=== PATIENT | female | born 1940 | race Native Hawaiian/Other Pacific Islander ===

== ENCOUNTER 2018-01-15 23:31 | Emergency (ER) | payer OTHER ==
[2018-01-15 23:32] VITALS: BMI 24.1
--- NOTE | 2018-01-15 23:43 | C.PDOC ---
History Of Present Illness 77 year old female presents to the ED c/o acute urinary retention. Patient reports she had bladder biopsy done last Thursday for bladder CA. Patient states being unable to void since 16:00. Patient denies fever, chills, nausea, vomit, diarrhea, back pain. Time Seen by Provider: 01/15/18 23:43 Chief Complaint (Nursing): Female Genitourinary History Per: Patient History/Exam Limitations: no limitations Onset/Duration Of Symptoms: Hrs (16:00) Current Symptoms Are (Timing): Still Present Severity: Mild Pain Scale Rating Of: 4 Quality Of Discomfort: Pressure, Other (tightness) Associated Symptoms: Urinary Symptoms. denies: Nausea, Vomiting, Diarrhea Recent travel outside of the [place]: No Additional History Per: Patient Abnormal Vaginal Bleeding: No Past Medical History Reviewed: Historical Data, Nursing Documentation, Vital Signs Vital Signs: Last Vital Signs Temp 98.2 F 01/15/18 23:35 Pulse 126 H 01/15/18 23:35 Resp 18 01/15/18 23:35 BP 199/94 H 01/15/18 23:35 Pulse Ox 99 01/15/18 23:35 - Medical History PMH: Arthritis, Diabetes, HTN, Hypercholesterolemia, Kidney Stones (2012), Chronic Kidney Disease Surgical History: Endoscopy (2006) - [facility] Procedures CYSTOSCOPY NEC (02/28/13) INSERT INDWELLING CATH (03/06/13) RETROGRADE PYELOGRAM (03/14/13) TU DESTRUC BLADD LES NEC (06/27/13) Family History: States: Unknown Family Hx - Social History Hx Tobacco Use: No Hx Alcohol Use: No Hx Substance Use: No - Immunization History Hx Tetanus Toxoid Vaccination: No Hx Influenza Vaccination: No Hx Pneumococcal Vaccination: No Review Of Systems Constitutional: Negative for: Fever, Chills Cardiovascular: Negative for: Chest Pain Respiratory: Negative for: Shortness of Breath Gastrointestinal: Positive for: Abdominal Pain. Negative for: Nausea, Vomiting Genitourinary: Positive for: Other (retention). Negative for: Dysuria, H ematuria Musculoskeletal: Negative for: Back Pain Skin: Negative for: Rash Physical Exam - Physical Exam Appears: Non-toxic, In Acute Distress Skin: Warm, Dry Head: Normacephalic Eye(s): bilateral: Normal Inspection Neck: Supple Chest: Symmetrical Cardiovascular: Rhythm Regular Respiratory: No Rhonchi, No Stridor, No Wheezing Gastrointestinal/Abdominal: Soft, Tenderness (suprapubic pressure, tightness), No Guarding, No Rebound Extremity: Bilateral: Atraumatic, Normal Color And Temperature, Normal ROM Neurological/Psych: Oriented x3, Normal Speech, Normal Cognition Gait: Steady ED Course And Treatment O2 Sat by Pulse Oximetry: 99 (ON RA) Pulse Ox Interpretation: Normal Progress Note: Plan: - Kenny Disposition Counseled Patient/Family Regarding: Studies Performed, Diagnosis, Need For Followup - Disposition Referrals: Tammy Mueller MD [Staff Provider] - Disposition: HOME/ ROUTINE Disposition Time: 23:43 Condition: FAIR Instructions: Urinary Retention (DC), How to Care for Your Kenny Catheter, Female, Kenny Catheter, Female Forms: [employer] (Bulgarian) - Clinical Impression Clinical Impression: Acute urinary retention - Scribe Statement The provider has reviewed the documentation as recorded by the Scribe Jose Zheng All medical record entries made by the Scribe were at my direction and personally dictated by me. I have reviewed the chart and agree that the record accurately reflects my personal performance of the history, physical exam, medical decision making, and the department course for this patient. I have also personally directed, reviewed, and agree with the discharge instructions and disposition.
[2018-01-16 01:44] VITALS: BP 141/68; PULSE 82; RESP 16; TEMP 98.7; O2SAT 96
== END 2018-01-16 00:49 | disposition home or self-care (01) ==
LOC: C.ER 23:31
DX: R33.9 Retention of urine, unspecified (principal)

== ENCOUNTER 2018-04-05 05:54 | Day surgery (SDC) | payer OTHER ==
[2018-03-09 09:09] VITALS: BMI 22.6
[2018-04-05] MEDS ORDERED: Midazolam 2 MG/2 ML VIAL ONE (07:37)
[2018-04-05] MEDS ORDERED: Propofol 10 mg/ml Inj (20 ML) ONE (07:37)
[2018-04-05] MEDS ORDERED: cefTRIAXone 1 gm 1 GM/100 ML BAG IVPB ONE (07:39)
[2018-04-05] MEDS ORDERED: Lidocaine 2% Jelly (Uro-Jet) ONE (07:39)
[2018-04-05] MEDS ORDERED: Iohexol 240 (50 ml) ONE (07:39)
[2018-04-05] MEDS ORDERED: Lactated Ringer's 1,000 ML IV ONE (08:46)
--- NOTE | 2018-04-05 09:11 | PCM.SURG1 ---
Surgeon's Initial Post Op Note - Surgeon's Notes Surgeon: Santa Mueller Farm Boss: none Type of Anesthesia: General LMA Pre-Operative Diagnosis: Hx of bladder cancer Operative Findings: Bladder cancer, multifocal Post-Operative Diagnosis: same Operation Performed: cysto,. bladder bx and ful. tur-BT. EUA Specimen/Specimens Removed: urine, bladder bx's Estimated Blood Loss: EBL {In ML}: 0 Blood Products Given: N/A Post-Op Condition: Good Date of Surgery/Procedure: 04/05/18 Time of Surgery/Procedure: 08:45
[2018-04-05 09:16] VITALS: O2SAT 100
[2018-04-05 10:00] VITALS: TEMP 98.2
[2018-04-05 10:04] VITALS: PULSE 80; RESP 12
[2018-04-05 10:51] VITALS: BP 136/72
--- NOTE | 2018-04-06 06:48 | OP ---
PROCEDURE DATE: 04/05/2018 PREOPERATIVE DIAGNOSIS: History of bladder carcinoma. POSTOPERATIVE DIAGNOSIS: Recurrent bladder tumor. PROCEDURES: 1. Fulguration. 2. Transurethral resection of bladder tumor. SURGEON: Tammy Mueller MD DESCRIPTION OF PROCEDURE: As follows: The patient was placed in lithotomy position. The genitalia were prepped and draped sterilely. Anesthesia applied by the anesthesiologist. Perioperative antibiotics were administered. A 22-Frisian cystoscope sheath was introduced under direct vision. Urethra, prostate, and bladder were inspected with 30-degree and 70-degree lenses. FINDINGS: There was no stricture in the anterior urethra. There was no bladder neck contracture. There were no mucosal lesions within the urethra. There were lytic bladder tumors noted on the right and left side of the bladder neck. There were multiple papillary tumors involving the trigone of the bladder as well as the anterior wall of the bladder at the dome. There were areas of focal erythema throughout the bladder with slightly granular and slightly raised appearance. The areas of the abnormal mucosa were biopsied using cold cup biopsy forceps. Fulguration was performed with Ball electrode and electrocautery. The cystoscope and sheath were removed after multiple hvac sales representative areas were biopsied. A 26-Frisian continuous flow resectoscope sheath was introduced with obturator. The resectoscope was inserted. The bladder tumors were resected. The tumors involved the floor of the trigone, the anterior wall, and the bladder neck. The tumors was sent individually for pathologic examination. The resectoscope was removed. The base of the bladder tumor on the anterior wall was biopsied using cold cup biopsy forceps. Fulguration of all biopsy sites and resection sites was performed with electrocautery. Hemostasis was completed. The rectoscope and sheath were removed. Kenny catheter was inserted. Bladder drainage was clear. Exam under anesthesia was performed. There was no abnormal pelvic mass fixation or induration. The patient tolerated the procedure without complication. Tammy Mueller MD cc: Vee Fortune MD
== END 2018-04-05 10:51 | disposition home or self-care (01) ==
LOC: C.SDS 05:54
PROVIDERS: ATTEND Urology
DX: C67.9 Malignant neoplasm of bladder, unspecified (principal)
CPT/HCPCS: 52234; 82948; 87086; 88305; A4358; J7120

== ENCOUNTER 2018-04-05 21:06 | Inpatient (IN) | payer OTHER ==
[2018-04-05 21:07] VITALS: BMI 22.6
--- NOTE | 2018-04-05 21:51 | C.PDOC ---
History Of Present Illness Patient had a bladder biopsy today by dr matthew, for bladder ca, and had an 20 fr indwelling monroy . Pt came in acute urinary retention. Tried flushing the catheter, without success. Pt in severe pain. No f/c/n/v Time Seen by Provider: 04/05/18 21:50 Chief Complaint (Nursing): Female Genitourinary History Per: Patient History/Exam Limitations: no limitations Onset/Duration Of Symptoms: Hrs Current Symptoms Are (Timing): Worse Severity: Severe Pain Scale Rating Of: 8 Quality Of Discomfort: Cramping, Pressure, Stabbing Associated Symptoms: denies: Fever, Chills, Nausea, Vomiting Alleviating Factors: None Recent travel outside of the [place]: No Abnormal Vaginal Bleeding: No Past Medical History Reviewed: Historical Data, Nursing Documentation, Vital Signs Vital Signs: Last Vital Signs Temp 98 F 04/05/18 21:24 Pulse 101 H 04/05/18 21:24 Resp 20 04/05/18 21:24 BP 158/75 H 04/05/18 21:24 Pulse Ox 96 04/05/18 21:24 - Medical History PMH: Arthritis, Diabetes, HTN, Hypercholesterolemia, Kidney Stones (2012) Surgical History: Endoscopy (2006) - [facility] Procedures CYSTOSCOPY NEC (02/28/13) INSERT INDWELLING CATH (03/06/13) RETROGRADE PYELOGRAM (03/14/13) TU DESTRUC BLADD LES NEC (06/27/13) Family History: States: No Known Family Hx - Social History Hx Tobacco Use: No Hx Alcohol Use: No Hx Substance Use: No - Immunization History Hx Tetanus Toxoid Vaccination: No Hx Influenza Vaccination: No Hx Pneumococcal Vaccination: No Review Of Systems Constitutional: Negative for: Fever, Chills Cardiovascular: Negative for: Chest Pain Respiratory: Negative for: Shortness of Breath Gastrointestinal: Positive for: Abdominal Pain, Other (indwelling monroy). Nega tive for: Nausea, Vomiting Genitourinary: Positive for: Dysuria, Other (urinary retention) Musculoskeletal: Negative for: Back Pain Skin: Negative for: Rash Neurological: Negative for: Weakness Psych: Positive for: Anxiety Physical Exam - Physical Exam Appears: In Acute Distress Skin: Warm, Dry Oral Mucosa: Moist Cardiovascular: Rhythm Regular Respiratory: No Rales, No Rhonchi, No Wheezing Gastrointestinal/Abdominal: Soft, Tenderness, Distention (globus vesicalis) Back: Normal Inspection Extremity: Normal ROM Extremity: Bilateral: Atraumatic Pulses: Left Dorsalis Pedis: Normal, Right Dorsalis Pedis: Normal Neurological/Psych: Oriented x3 Gait: Steady ED Course And Treatment - Laboratory Results Result Diagrams: 04/05/18 22:37 04/05/18 22:37 O2 Sat by Pulse Oximetry: 96 Pulse Ox Interpretation: Normal Progress Note: placed 24 fr monroy without difficulty. about 200 of clots . pt with instant relief. 12:25am Pt with more pain, unable to flush catheter. Changed to a [address] another 200-2500 cc of clots drained. flushing clots. feels better. 4:20 AM monroy draining less bloody "flush". spoke with dr matthew - will come and see the patient Disposition Discussed With .: Tl Cochran Comment: acceptd the pt on hisservice and took over the care at 6:40 AM Doctor Will See Patient In The: Hospital Counseled Patient/Family Regarding: Studies Performed, Diagnosis - Disposition Disposition: HOSPITALIZED Disposition Time: 21:51 Condition: FAIR Forms: [employer] (Kyrgyz) - POA Present On Arrival: None - Clinical Impression Clinical Impression: Acute urinary retention, Hematuria Decision To Admit - Pt Status Changed To: Hospital Disposition Of: Inpatient - Admit Certification Admit to Inpatient:: After my assessment, the patient will require hospitalization for at least two midnights. This is because of the severity of symptoms shown, intensity of services needed, and/or the medical risk in this patient being treated as an outpatient. - InPatient: Physician Admission Certification: I certify that this patient requires 2 or more midnights of care for the following reason:: After my assessment, the patient will require hospitalization for at least two midnights. This is because of the severity of symptoms shown, intensity of services needed, and/or the medical risk in this patient being treated as an outpatient. - . Bed Request Type: Regular Admitting Physician: Tl Cochran Patient Diagnosis: Hematuria, Acute urinary retention
[2018-04-05] MEDS ORDERED: Sodium Chloride 0.9% 1,000 ML IV SCH (22:30)
[2018-04-05 22:45] LABS: BASO % 0.2 % (0.0-2.0); EOS # 0.1 K/uL (0.0-0.7); EOS % 1.1 % (0.0-4.0); HEMOGLOBIN 12.7 g/dL (11.0-16.0); LYMPH # 1.7 K/uL (1.0-4.3); LYMPH % 15.1 % (20.0-40.0); MEAN CELL VOLUME 93.5 fL (81.0-99.0); MEAN CORPUSCULAR HEMOGLOBIN 30.7 pg (27.0-31.0); MEAN CORPUSCULAR HGB CONC 32.9 g/dL (33.0-37.0); MEAN PLATELET VOLUME 8.3 fL (7.2-11.7); MONO # 0.5 K/uL (0.0-0.8); MONO % 4.6 % (0.0-10.0); NEUT # 8.7 K/uL (1.8-7.0); RBC 4.14 Mil/uL (3.80-5.20); RED CELL DISTRIBUTION WIDTH 13.8 % (11.5-14.5)
[2018-04-05 22:53] LABS: INR 1.2; PROTHROMBIN TIME 13.1 SECONDS (9.7-12.2)
[2018-04-05 23:08] LABS: ALB/GLOB RATIO 1.5 (1.0-2.1); ALBUMIN 4.5 g/dL (3.5-5.0); ALT/SGPT 24 U/L (9-52); AST/SGOT 20 U/L (14-36); BLOOD UREA NITROGEN 11 mg/dL (7-17); CALCIUM 8.8 mg/dl (8.6-10.4); GFR NON-AFRICAN AMERICAN > 60
[2018-04-06] MEDS ORDERED: Potassium Chloride 20 mEq ER Tab PO ONE (01:43)
[2018-04-06] MEDS ORDERED: Potassium Chloride 20 mEq ER Tab PO STA (01:43)
--- NOTE | 2018-04-06 08:10 | CP.PCM.HP ---
History of Present Illness - History of Present Illness History of Present Illness: Chief complaint: Abdominal pain HPI: 77-year-old female with history of diabetes hypertension high cholesterol underwent bladder biopsy, for possible bladder cancer on 04/05/2018, and patient was sent home. But last night she was having increasing abdominal pain. Unable to pass urine, and she started having more pain came to the emergency room. In the emergency room patient was noted to have a significant urinary retention, and also severe pain. Immediately urinary Kenny catheter was inserted three-way Kenny, by the emergency room attending. Now patient is having draining of the bladder continuously, significant bleeding still persistently present. She is really having minimal pain. She had a episode of vomiting this morning. She has no fever. Denies any chills. Past medical history: Hypertension, high cholesterol, diabetes, recently diagnosed with bladder cancer. Patient also history of kidney stones and osteoarthritis. Surgical history: Patient recently had cystoscopy, bladder biopsy, and also cataract surgery in the past. Allergy no known drug allergy Personal history non-smoker nonalcoholic Family history noncontributory On review of system: Patient is having no headache or visual symptoms denies any chest pain. Denies any nausea, but this morning patient had an episode of vomiting. Abdominal pain noted. No leg swelling. Examination: Vital signs stable otherwise. Chest bilateral good air entry noted Heart sounds are regular Abdomen soft. Minimal suprapubic tenderness present. No pedal edema. Labs reviewed WBC 11.0 Hemoglobin stable. BUN 11 creatinine 0.5. Chest x-ray is very clear. No infiltrate noted Patient had a CT scan of the abdomen and pelvis, reported as having blood in the bladder, otherwise nonspecific. Assessment and recognition: Patient is a 77-year-old female with a history of diabetes hypertension hypercholesterolemia admitted recently with a bladder biopsy for bladder cancer. Patient developed a sudden onset of abdominal pain. Bladder obstruction. Secondary to bleeding and hematoma. Patient is currently on CPAP Urology evaluation. N.p.o. IV fluid. Possible surgical intervention today. We will discuss with the urologist and will follow the patient. DVT and GI prophylaxis Present on Admission - Present on Admission Any Indicators Present on Admission: No History of DVT/PE: No History of Uncontrolled Diabetes: No Urinary Catheter: No Decubitus Ulcer Present: No Past Patient History - Infectious Disease Hx of Infectious Diseases: None - Past Medical History & Family History Past Medical History?: Yes - Past Social History Smoking Status: Never Smoked - CARDIAC Hx Hypercholesterolemia: Yes Hx Hypertension: Yes - PULMONARY Hx Respiratory Disorders: No - NEUROLOGICAL Hx Neurological Disorder: No - HEENT Hx HEENT Problems: Yes Hx Cataracts: Yes (IOL) - RENAL Hx Kidney Stones: Yes (2012) - ENDOCRINE/METABOLIC Hx Endocrine Disorders: Yes Hx Diabetes Mellitus Type 2: Yes - HEMATOLOGICAL/ONCOLOGICAL Hx Blood Disorders: Yes Hx Cancer: Yes (bladder ca) - INTEGUMENTARY Hx Dermatological Problems: No - MUSCULOSKELETAL/RHEUMATOLOGICAL Hx Arthritis: Yes - GASTROINTESTINAL Hx Gastrointestinal Disorders: No - GENITOURINARY/GYNECOLOGICAL Hx Genitourinary Disorders: Yes Hx Bladder Cancer: Yes (bladder mass) - PSYCHIATRIC Hx Substance Use: No - SURGICAL HISTORY Hx Surgeries: Yes Hx Cataract Extraction: Yes (/2008) Other/Comment: SEVERAL CYSTOSCOPIES TURBT - ANESTHESIA Hx Anesthesia: Yes Hx Anesthesia Reactions: No Hx Malignant Hyperthermia: No Meds Allergies/Adverse Reactions: Allergies Allergy/AdvReac Type Severity Reaction Status Date / Time No Known Allergies Allergy Verified 03/09/18 09:08 Results - Vital Signs Recent Vital Signs: Last Vital Signs Temp 98.9 F 04/06/18 05:43 Pulse 69 04/06/18 05:43 Resp 20 04/06/18 05:43 BP 124/61 04/06/18 05:43 Pulse Ox 96 04/06/18 06:42 - Labs Result Diagrams: 04/05/18 22:37 04/05/18 22:37 Labs: Laboratory Results - last 24 hr 04/05/18 04/05/18 04/05/18 22:37 22:37 22:37 WBC 11.0 H D RBC 4.14 Hgb 12.7 Hct 38.7 MCV 93.5 MCH 30.7 MCHC 32.9 L RDW 13.8 Plt Count 321 MPV 8.3 Neut % (Auto) 79.0 H Lymph % (Auto) 15.1 L [place] % (Auto) 4.6 Eos % (Auto) 1.1 Baso % (Auto) 0.2 Neut # (Auto) 8.7 H Lymph # (Auto) 1.7 [place] # (Auto) 0.5 Eos # (Auto) 0.1 Baso # (Auto) 0.0 PT 13.1 H INR 1.2 APTT 32 Sodium 136 Potassium 3.1 L Chloride 100 Carbon Dioxide 26 Anion Gap 14 BUN 11 Creatinine 0.5 L Est GFR ( Amer) > 60 Est GFR (Non-Af Amer) > 60 Random Glucose 125 H Calcium 8.8 Total Bilirubin 0.4 AST 20 ALT 24 Alkaline Phosphatase 80 Total Protein 7.4 Albumin 4.5 Globulin 2.9 Albumin/Globulin Ratio 1.5 Blood Type Antibody Screen 04/05/18 22:37 WBC RBC Hgb Hct MCV MCH MCHC RDW Plt Count MPV Neut % (Auto) Lymph % (Auto) [place] % (Auto) Eos % (Auto) Baso % (Auto) Neut # (Auto) Lymph # (Auto) [place] # (Auto) Eos # (Auto) Baso # (Auto) PT INR APTT Sodium Potassium Chloride Carbon Dioxide Anion Gap BUN Creatinine Est GFR ( Amer) Est GFR (Non-Af Amer) Random Glucose Calcium Total Bilirubin AST ALT Alkaline Phosphatase Total Protein Albumin Globulin Albumin/Globulin Ratio Blood Type B POSITIVE Antibody Screen Negative
--- NOTE | 2018-04-06 10:34 | CT ---
Date of service: 04/05/2018 PROCEDURE: CT Abdomen and Pelvis without intravenous contrast HISTORY: s/p bladder biopsy COMPARISON: None. TECHNIQUE: Technique. Contrast dose: Radiation dose: Total exam DLP = 249.98 mGy-cm. This CT exam was performed using one or more of the following dose reduction techniques: Automated exposure control, adjustment of the mA and/or kV according to patient size, and/or use of iterative reconstruction technique. FINDINGS: LOWER THORAX: Unremarkable. LIVER: Roughly 6 cm right hepatic cyst.. No gross lesion or ductal dilatation. Caudate cyst 3cm. GALLBLADDER AND BILE DUCTS: Unremarkable. PANCREAS: Unremarkable. No gross lesion or ductal dilatation. SPLEEN: Unremarkable. ADRENALS: Unremarkable. No mass. KIDNEYS AND URETERS: Bilateral renal cysts and bilateral renal calculi with bilateral extrarenal pelvis. VASCULATURE: Unremarkable. No aortic aneurysm. No aortic atherosclerotic calcification or mural plaque present. BOWEL: Unremarkable. No obstruction. No gross mural thickening. APPENDIX: Unremarkable. Normal appendix. PERITONEUM: Unremarkable. No free fluid. No free air. LYMPH NODES: Unremarkable. No enlarged lymph nodes. BLADDER: Undistended bladder with Kenny catheter and extensive Hemorrhage and gas.. REPRODUCTIVE: Unremarkable. BONES: No acute fracture. OTHER FINDINGS: None. IMPRESSION: Abundant Hemorrhage and gas in the urinary bladder. Bilateral renal cysts and extrarenal pelvis with bilateral renal calculi.
[2018-04-06] MEDS: Lactobacillus Acidophilus 500 MU Cap PO SCH (11:32)
[2018-04-06] MEDS: (Novolin R) Insulin Human Regular 100 units/ml vial SC SCH ×3 (12:00→21:24)
[2018-04-06 16:03] VITALS: RESP 20
[2018-04-07] MEDS: (Novolin R) Insulin Human Regular 100 units/ml vial SC SCH ×4 (08:06→21:16)
[2018-04-07] MEDS: Lactobacillus Acidophilus 500 MU Cap PO SCH (10:04)
[2018-04-07 11:41] LABS: MEAN CELL VOLUME 94.8 fL (81.0-99.0); MEAN CORPUSCULAR HEMOGLOBIN 31.8 pg (27.0-31.0); MEAN CORPUSCULAR HGB CONC 33.5 g/dL (33.0-37.0); MEAN PLATELET VOLUME 8.4 fL (7.2-11.7); RBC 3.16 Mil/uL (3.80-5.20); RED CELL DISTRIBUTION WIDTH 13.8 % (11.5-14.5); WHITE BLOOD COUNT 7.9 K/uL (4.8-10.8)
[2018-04-07 11:52] LABS: HEMOGLOBIN 10.1 g/dL (11.0-16.0)
[2018-04-07 12:11] LABS: BLOOD UREA NITROGEN 15 mg/dL (7-17); CALCIUM 8.4 mg/dl (8.6-10.4); GFR NON-AFRICAN AMERICAN > 60
[2018-04-08] MEDS: (Novolin R) Insulin Human Regular 100 units/ml vial SC SCH ×4 (07:49→21:47)
[2018-04-08] MEDS: Lactobacillus Acidophilus 500 MU Cap PO SCH (10:37)
[2018-04-08] MEDS ORDERED: Magnesium Citrate Oral SOL (300 ml) PO ONE (17:59)
[2018-04-09 07:48] LABS: BASO % 0.5 % (0.0-2.0); EOS # 0.4 K/uL (0.0-0.7); EOS % 4.7 % (0.0-4.0); HEMOGLOBIN 10.6 g/dL (11.0-16.0); LYMPH # 2.5 K/uL (1.0-4.3); MEAN CELL VOLUME 93.9 fL (81.0-99.0); MEAN CORPUSCULAR HEMOGLOBIN 31.9 pg (27.0-31.0); MEAN PLATELET VOLUME 8.4 fL (7.2-11.7); MONO # 0.4 K/uL (0.0-0.8); MONO % 4.9 % (0.0-10.0); NEUT # 5.3 K/uL (1.8-7.0); NEUT % 60.9 % (50.0-75.0); RBC 3.34 Mil/uL (3.80-5.20); RED CELL DISTRIBUTION WIDTH 13.6 % (11.5-14.5); WHITE BLOOD COUNT 8.7 K/uL (4.8-10.8)
[2018-04-09] MEDS: (Novolin R) Insulin Human Regular 100 units/ml vial SC SCH ×4 (08:26→21:03)
[2018-04-09] MEDS: Lactobacillus Acidophilus 500 MU Cap PO SCH (10:03)
[2018-04-10] MEDS: (Novolin R) Insulin Human Regular 100 units/ml vial SC SCH ×2 (08:05→11:28)
[2018-04-10 08:28] LABS: BASO # 0.1 K/uL (0.0-0.2); BASO % 0.9 % (0.0-2.0); EOS # 0.5 K/uL (0.0-0.7); EOS % 7.3 % (0.0-4.0); HEMOGLOBIN 10.3 g/dL (11.0-16.0); LYMPH # 2.5 K/uL (1.0-4.3); LYMPH % 35.6 % (20.0-40.0); MEAN CELL VOLUME 94.4 fL (81.0-99.0); MEAN CORPUSCULAR HEMOGLOBIN 31.5 pg (27.0-31.0); MEAN CORPUSCULAR HGB CONC 33.3 g/dL (33.0-37.0); MEAN PLATELET VOLUME 8.8 fL (7.2-11.7); MONO # 0.4 K/uL (0.0-0.8); MONO % 6.2 % (0.0-10.0); NEUT # 3.6 K/uL (1.8-7.0); RBC 3.26 Mil/uL (3.80-5.20); RED CELL DISTRIBUTION WIDTH 13.6 % (11.5-14.5); WHITE BLOOD COUNT 7.1 K/uL (4.8-10.8)
[2018-04-10 08:53] VITALS: BP 113/55; PULSE 71; TEMP 98.1; O2SAT 99
[2018-04-10 08:56] LABS: BLOOD UREA NITROGEN 19 mg/dL (7-17); CALCIUM 8.4 mg/dl (8.6-10.4); GFR NON-AFRICAN AMERICAN > 60
[2018-04-10] MEDS: Lactobacillus Acidophilus 500 MU Cap PO SCH (09:37)
--- NOTE | 2018-04-12 02:46 | PN ---
DATE: 04/08/2018 SUBJECTIVE: See previous dictated consult note and progress note. The patient is status post TURBT, looks like the bladder is cleared up mostly. PAST MEDICAL AND SURGICAL HISTORY: No other changes. PHYSICAL EXAMINATION: There is no change. DIAGNOSIS: Postoperative gross hematuria with clot retention. PLAN: The plan is as follows. We are going to lower the CBI, check the hemoglobin and hematocrit from today. We will check repeat tomorrow 04/09/2018 and then we will plan for a voiding trial. At this point, it looks like the patient is stabilized and no longer bleeding. Fredrick Mueller MD
--- NOTE | 2018-04-12 03:27 | PN ---
DATE: 04/09/2018 UROLOGY PROGRESS NOTE See the previously dictated notes on 04/06/2018, 04/07/2018, 04/08/2018. SUBJECTIVE: We checked the CBC with a hemoglobin now stabilized. It went back up, so it started at 12.5, it fell back to 10, today it is about 10.5. The patient is currently resting. No complaints. Abdomen is soft. Feeling a little difficulty with the bowel movement at the time of admission, but it is not grossly distended. DIAGNOSES: Gross hematuria, urinary retention, status post transurethral resection of bladder tumor, now stable. Urine looking clear. PLAN: The plan is we are going to give her a voiding trial and if the patient remains stable, able to void, and we will also give some stool softener and laxatives. If the patient remains stable, we will plan for discharge home. Fredrick Mueller MD
--- NOTE | 2018-04-12 04:44 | PN ---
DATE: 04/07/2018 See the consult note from 04/06/2018. SUBJECTIVE: The patient underwent TURBT on 04/05/2017. On 04/06/2018 re-presented with gross hematuria. She now has a Kenny catheter in place. I had the chance to speak to Dr. Cochran. PAST MEDICAL AND SURGICAL HISTORY: Listed on the chart. No other changes. PHYSICAL EXAMINATION: ABDOMEN: Soft. Kenny catheter with the CBI is reasonably clear. LABORATORY DATA: I do want to mention the CT scan finding, indicates some clots in the bladder. I do want mention the hemoglobin and hematocrit. Hemoglobin has gone from about 12.5 to about 10. PLAN: The plain is as follows: Maintain this CBI, but up and down the rate, control the rate and then decide what to do further. Further plans will follow. We will now maintain the CBI and then control the rate and adjust the rate accordingly. I do want to mention also, I spoke to the children, the sons, and the patient and the further plans will follow . Fredrick Mueller MD
--- NOTE | 2018-04-12 07:54 | CP.PCM.PN ---
Subjective - Date & Time of Evaluation Date of Evaluation: 04/07/18 Time of Evaluation: 07:55 - Subjective Subjective: Patient is still having Kenny catheter. Significant blood noted. Receiving IV fluid. Seen by urologist. At this time though no surgical intervention is opted at this time. We will continue to monitor. I spoke to the urologist Vital signs stable. Chest good air entry regular [place] nontender abdomen Assessment: 77-year-old female with a history of bladder cancer. Status post surgery. Hematuria significant with blood clots. We will continue the CBI Objective - Vital Signs/Intake and Output Vital Signs (last 24 hours): Temp Pulse Resp BP Pulse Ox 98.1 F 71 20 113/55 L 99 04/10/18 08:00 04/10/18 08:00 04/10/18 08:00 04/10/18 08:00 04/10/18 08:00 - Labs Labs: 04/10/18 08:20 04/10/18 08:20 PT 13.1 SECONDS (9.7-12.2) H 04/05/18 22:37 INR 1.2 04/05/18 22:37 APTT 32 SECONDS (21-34) 04/05/18 22:37
--- NOTE | 2018-04-12 07:54 | CP.PCM.PN ---
Subjective - Date & Time of Evaluation Date of Evaluation: 04/08/18 Time of Evaluation: 07:55 - Subjective Subjective: Patient is having no chest pain. Denies any nausea vomiting. Urinary discomfort minimally still present. Kenny catheter still having blood We will continue with IV fluid. No surgical intervention at this time we will closely monitor H&H Objective - Vital Signs/Intake and Output Vital Signs (last 24 hours): Temp Pulse Resp BP Pulse Ox 98.1 F 71 20 113/55 L 99 04/10/18 08:00 04/10/18 08:00 04/10/18 08:00 04/10/18 08:00 04/10/18 08:00 - Labs Labs: 04/10/18 08:20 04/10/18 08:20 PT 13.1 SECONDS (9.7-12.2) H 04/05/18 22:37 INR 1.2 04/05/18 22:37 APTT 32 SECONDS (21-34) 04/05/18 22:37
--- NOTE | 2018-04-12 07:54 | CP.PCM.PN ---
Subjective - Date & Time of Evaluation Date of Evaluation: 04/09/18 Time of Evaluation: 07:56 - Subjective Subjective: Patient has no nausea vomiting. She is feeling somewhat better. Still having some urinary discomfort. We will continue to monitor. I spoke to the urologist. Hemoglobin is stable Objective - Vital Signs/Intake and Output Vital Signs (last 24 hours): Temp Pulse Resp BP Pulse Ox 98.1 F 71 20 113/55 L 99 04/10/18 08:00 04/10/18 08:00 04/10/18 08:00 04/10/18 08:00 04/10/18 08:00 - Labs Labs: 04/10/18 08:20 04/10/18 08:20 PT 13.1 SECONDS (9.7-12.2) H 04/05/18 22:37 INR 1.2 04/05/18 22:37 APTT 32 SECONDS (21-34) 04/05/18 22:37
--- NOTE | 2018-04-12 07:55 | CP.PCM.PN ---
Subjective - Date & Time of Evaluation Date of Evaluation: 04/10/18 Time of Evaluation: 07:54 - Subjective Subjective: Kenny catheter was discontinued yesterday. Patient is currently making good urine. She is stable. I discussed with the urologist. Clinically stable she can be discharged home today Objective - Vital Signs/Intake and Output Vital Signs (last 24 hours): Temp Pulse Resp BP Pulse Ox 98.1 F 71 20 113/55 L 99 04/10/18 08:00 04/10/18 08:00 04/10/18 08:00 04/10/18 08:00 04/10/18 08:00 - Labs Labs: 04/10/18 08:20 04/10/18 08:20 PT 13.1 SECONDS (9.7-12.2) H 04/05/18 22:37 INR 1.2 04/05/18 22:37 APTT 32 SECONDS (21-34) 04/05/18 22:37
--- NOTE | 2018-04-12 07:56 | CP.PCM.DIS ---
Provider - Provider Date of Admission: 04/06/18 06:38 Attending physician: Tl Cochran MD Consults: 04/06/18 06:39 Urology Consult Stat Comment: hematuria Consulting Provider: Lazaro Mueller Consulting Physician: Lazaro Mueller Reason for Consult: hematuria Time Spent in preparation of Discharge (in minutes): 45 Hospital Course - Lab Results Lab Results: Most Recent Lab Values WBC 7.1 K/uL (4.8-10.8) 04/10/18 08:20 RBC 3.26 Mil/uL (3.80-5.20) L 04/10/18 08:20 Hgb 10.3 g/dL (11.0-16.0) L 04/10/18 08:20 Hct 30.8 % (34.0-47.0) L 04/10/18 08:20 MCV 94.4 fL (81.0-99.0) 04/10/18 08:20 MCH 31.5 pg (27.0-31.0) H 04/10/18 08:20 MCHC 33.3 g/dL (33.0-37.0) 04/10/18 08:20 RDW 13.6 % (11.5-14.5) 04/10/18 08:20 Plt Count 309 K/uL (130-400) 04/10/18 08:20 MPV 8.8 fL (7.2-11.7) 04/10/18 08:20 Neut % (Auto) 50.0 % (50.0-75.0) 04/10/18 08:20 Lymph % (Auto) 35.6 % (20.0-40.0) 04/10/18 08:20 Cavalier % (Auto) 6.2 % (0.0-10.0) 04/10/18 08:20 Eos % (Auto) 7.3 % (0.0-4.0) H 04/10/18 08:20 Baso % (Auto) 0.9 % (0.0-2.0) 04/10/18 08:20 Neut # (Auto) 3.6 K/uL (1.8-7.0) 04/10/18 08:20 Lymph # (Auto) 2.5 K/uL (1.0-4.3) 04/10/18 08:20 Cavalier # (Auto) 0.4 K/uL (0.0-0.8) 04/10/18 08:20 Eos # (Auto) 0.5 K/uL (0.0-0.7) 04/10/18 08:20 Baso # (Auto) 0.1 K/uL (0.0-0.2) 04/10/18 08:20 PT 13.1 SECONDS (9.7-12.2) H 04/05/18 22:37 INR 1.2 04/05/18 22:37 APTT 32 SECONDS (21-34) 04/05/18 22:37 Sodium 138 mmol/L (132-148) 04/10/18 08:20 Potassium 4.1 mmol/L (3.6-5.2) 04/10/18 08:20 Chloride 106 mmol/L (98-107) 04/10/18 08:20 Carbon Dioxide 26 mmol/L (22-30) 04/10/18 08:20 Anion Gap 10 (10-20) 04/10/18 08:20 BUN 19 mg/dL (7-17) H 04/10/18 08:20 Creatinine 0.6 mg/dL (0.7-1.2) L 04/10/18 08:20 Est GFR ( Amer) > 60 04/10/18 08:20 Est GFR (Non-Af Amer) > 60 04/10/18 08:20 POC Glucose (mg/dL) 106 mg/dL (65-110) 04/10/18 11:21 Random Glucose 101 mg/dL (65-105) D 04/10/18 08:20 Calcium 8.4 mg/dl (8.6-10.4) L 04/10/18 08:20 Total Bilirubin 0.4 mg/dL (0.2-1.3) 04/05/18 22:37 AST 20 U/L (14-36) 04/05/18 22:37 ALT 24 U/L (9-52) 04/05/18 22:37 Alkaline Phosphatase 80 U/L (38-126) 04/05/18 22:37 Total Protein 7.4 g/dL (6.3-8.3) 04/05/18 22:37 Albumin 4.5 g/dL (3.5-5.0) 04/05/18 22:37 Globulin 2.9 gm/dL (2.2-3.9) 04/05/18 22:37 Albumin/Globulin Ratio 1.5 (1.0-2.1) 04/05/18 22:37 Blood Type B POSITIVE 04/05/18 22:37 Antibody Screen Negative 04/05/18 22:37 - Hospital Course Hospital Course: Chief complaint: Abdominal pain HPI: 77-year-old female with history of diabetes hypertension high cholesterol underwent bladder biopsy, for possible bladder cancer on 04/05/2018, and patient was sent home. But last night she was having increasing abdominal pain. Unable to pass urine, and she started having more pain came to the emergency room. In the emergency room patient was noted to have a significant urinary retention, and also severe pain. Immediately urinary Kenny catheter was inserted three-way Kenny, by the emergency room attending. Now patient is having draining of the bladder continuously, significant bleeding still persistently present. She is really having minimal pain. She had a episode of vomiting this morning. She has no fever. Denies any chills. Past medical history: Hypertension, high cholesterol, diabetes, recently diagnosed with bladder cancer. Patient also history of kidney stones and osteoarthritis. Surgical history: Patient recently had cystoscopy, bladder biopsy, and also cataract surgery in the past. Allergy no known drug allergy Personal history non-smoker nonalcoholic Family history noncontributory On review of system: Patient is having no headache or visual symptoms denies any chest pain. Denies any nausea, but this morning patient had an episode of vomiting. Abdominal pain noted. No leg swelling. Examination: Vital signs stable otherwise. Chest bilateral good air entry noted Heart sounds are regular Abdomen soft. Minimal suprapubic tenderness present. No pedal edema. Labs reviewed WBC 11.0 Hemoglobin stable. BUN 11 creatinine 0.5. Chest x-ray is very clear. No infiltrate noted Patient had a CT scan of the abdomen and pelvis, reported as having blood in the bladder, otherwise nonspecific. Assessment and recognition: Patient is a 77-year-old female with a history of diabetes hypertension hypercholesterolemia admitted recently with a bladder biopsy for bladder cancer. Patient developed a sudden onset of abdominal pain. Bladder obstruction. Secondary to bleeding and hematoma. Patient is currently on CPAP Urology evaluation. N.p.o. IV fluid. Possible surgical intervention today. We will discuss with the urologist and will follow the patient. DVT and GI prophylaxis Course in the hospital: Patient was admitted to the hospital with the diagnosis of bladder obstruction secondary to bleeding urinary bladder. Patient recently underwent surgical intervention removal of the bladder mass. Following that the patient has developed hematuria a significant amount. Patient now having three-way Kenny catheter, currently receiving CBI. Closely patient was monitored. She continued to have a bleeding. Urology evaluation was called in. I spoke to the urologist. Most likely the bleeding secondary to postoperative. Close monitoring recommended Hemoglobin was monitored. Stable clinically. Kenny catheter was discontinued yesterday. For the last 24 hours her urine output is better. She has no symptoms. Clinically she is stable. She can be discharged home. She will follow-up with urologist. Final diagnosis: Acute ureteral obstruction secondary to bladder hematoma and bladder clots. Status post bladder surgery. Bladder mass. Bladder tumor carcinoma. Clinically stable. Diabetes and hypertension. She will continue her home medications Discharge Plan - Follow Up Plan Condition: FAIR Disposition: HOME/ ROUTINE Instructions: Heart Healthy Diet, Blood in the Urine (Hematuria), Adult (DC), Diabetic Meal Planning , Urinary Retention (DC) Additional Instructions: follow up with Dr Cochran in one week . Referrals: Tl Cochran MD [Staff Provider] -
--- NOTE | 2018-04-12 13:27 | CON ---
DATE: 04/06/2018 See chart notes for further urology consultation dated 04/06/2018 for gross hematuria. HISTORY OF PRESENT ILLNESS: Ms. Nanda Mullins yesterday, on 04/05/2018, underwent a TURBT. Afterwards, she was noted to have some bleeding and so she came back to the emergency room, they have inserted a Kenny catheter. We contacted the emergency room and now the patient is on the floor with the Kenny to CBI. See the plans listed below. Further plans follow. A very pleasant 77-year-old lady, Dr. Tammy Mueller's patient, who underwent a TURBT. There was no complications. Afterwards, she was noted to have a little blood in the urine, so she went back to the emergency room where they had drained and was inserted a Kenny catheter via the urethra. Urology was consulted for further recommendations. PAST MEDICAL AND SURGICAL HISTORY: As listed on the chart. MEDICATIONS: The patient is not currently on any blood thinner. REVIEW OF SYSTEMS: As listed above, otherwise noncontributory. SOCIAL HISTORY: She is currently with her son at the bedside. See the chart . She is the patient of Dr. Fortune, who apparently is unavailable at this moment, so we are admitting the patient and is under the service of Dr. Cochran. She would then medical management. PHYSICAL EXAMINATION: GENERAL: A well-nourished female. She is currently resting comfortably in her bed. VITAL SIGNS: Noted to be within normal limits. LABORATORY DATA: Her hemoglobin and hematocrit are noted. There has been a flow initially. See below. Specifically, she is admitted with hemoglobin of about 12 yesterday. see the chart. DIAGNOSIS: Underlying bladder cancer. Now, gross hematuria with clot urinary retention. ASSESSMENT AND PLAN: The patient is currently reasonably comfortable with the Kenny catheter in place. The urology plan is as follows. We are going to maintain the continuous bladder irrigation, we are going to try to not bring the patient back to the operating room. I had a chance to speak with Dr. Tammy Mueller regarding the patient described the procedure at this level, dictated a separate note. We are going to monitor the patient's BUN and creatinine and her CBC and then make further recommendations and plan depending on how she does clinically. Further plans will follow. In the interim, the patient remains stable, but we need to monitor the blood output and hopefully, we will observe her and that will be the plan. Fredrick Mueller MD
== END 2018-04-10 12:10 | disposition home or self-care (01) | DRG 921 ==
LOC: C.ER 21:06 → C.9E 04-06 06:38 → C.3T 04-06 11:45
PROVIDERS: ADMIT Internal Medicine; ATTEND Internal Medicine
PROC: 0T9B70Z Drainage of Bladder with Drainage Device, Via Natural or Artificial Opening (ICD-10-PCS; principal; 2018-04-06)
PROC: 0T2BX0Z Change Drainage Device in Bladder, External Approach (ICD-10-PCS; 2018-04-06)
DX: N99.840 Postprocedural hematoma of a genitourinary system organ or structure following a genitourinary system procedure (principal); N99.820 Postprocedural hemorrhage of a genitourinary system organ or structure following a genitourinary system procedure; N13.5 Crossing vessel and stricture of ureter without hydronephrosis; C67.9 Malignant neoplasm of bladder, unspecified; R31.0 Gross hematuria; R33.8 Other retention of urine; Y84.8 Other medical procedures as the cause of abnormal reaction of the patient, or of later complication, without mention of misadventure at the time of the procedure; I10 Essential (primary) hypertension; E11.9 Type 2 diabetes mellitus without complications; E78.00 Pure hypercholesterolemia, unspecified; M19.90 Unspecified osteoarthritis, unspecified site; Z87.442 Personal history of urinary calculi

== ENCOUNTER 2018-08-06 10:37 | Outpatient (CLI) | payer OTHER | END 2018-08-06 10:38 | disposition home or self-care (01) | LOC: C.PAT 10:37 | DX: C67.9 Malignant neoplasm of bladder, unspecified (principal) ==

== ENCOUNTER 2018-08-16 06:05 | Day surgery (SDC) | payer OTHER ==
[2018-08-16] MEDS ORDERED: HYDROmorphone 0.5 mg/0.5 ml ISec IVP PRN (07:25)
[2018-08-16] MEDS ORDERED: cefTRIAXone 1 gm 1 GM/100 ML BAG IVPB ONE (07:26)
[2018-08-16] MEDS ORDERED: Iohexol 240 (50 ml) ONE (07:26)
[2018-08-16] MEDS ORDERED: Propofol 10 mg/ml Inj (20 ML) ONE (07:56)
[2018-08-16 09:20] VITALS: TEMP 97
--- NOTE | 2018-08-16 09:21 | PCM.SURG1 ---
Surgeon's Initial Post Op Note - Surgeon's Notes Surgeon: Santa Mueller Grazing Examiner: none Type of Anesthesia: General LMA Pre-Operative Diagnosis: Bladder Cancer Operative Findings: recurrent bladder cancer Post-Operative Diagnosis: same Operation Performed: cysto. bilat rtg pyelogram. bladder bx and fulg. TUR-BT. EUA Specimen/Specimens Removed: urine. bladder bx's Estimated Blood Loss: EBL {In ML}: 10 Blood Products Given: N/A Post-Op Condition: Good Date of Surgery/Procedure: 08/16/18 Time of Surgery/Procedure: 09:05
[2018-08-16 10:51] VITALS: BP 172/70; PULSE 93; RESP 18; O2SAT 96
--- NOTE | 2018-08-16 13:19 | RAD ---
Date of service: 08/16/2018 PROCEDURE: Intraoperative Fluoroscopy. HISTORY: RECURRENT BLADDER CA. FINDINGS: Fluoroscopic assistance was provided for bilateral retrograde study. Total fluoroscopic time (continuous mode) utilized during the procedure 24.8 seconds. Dose report: DLP [id number] (mGy/m2) Submitted images from the current procedure: 12.0 . Please refer to the operative report from Dr. PAYNE, [place].
--- NOTE | 2018-08-17 17:21 | RAD ---
Date of service: 08/16/2018 HISTORY: RECURRENT BLADDER CA. COMPARISON: 03/14/2013 TECHNIQUE: 1 view obtained. FINDINGS: BOWEL: Stool retention. No obstruction. BONES: Normal. OTHER FINDINGS: Pulmonary tower director film shows no gross urolithiasis appreciated. Film labeled last film shows cystoscope with contrast in a nondistended bladder without gross filling defect and bilateral contrast opacification of the pelvocaliceal systems the right showing slightly greater asymmetrical fullness and some flattening of the major calices no gross filling defects appreciated. Portions visualized.- Limited opacification of most of the ureters IMPRESSION: Findings as above
--- NOTE | 2018-08-19 04:20 | OP ---
PROCEDURE DATE: 08/16/2018 PREOPERATIVE DIAGNOSIS: History of bladder carcinoma. POSTOPERATIVE DIAGNOSIS: Recurrent bladder carcinoma. Multiple recurrences. PROCEDURES: Cystoscopy. Bilateral retrograde pyelogram. Multiple bladder biopsies and fulguration. Multiple transurethral resections of bladder tumors. OPERATING SURGEON: Dr. Tammy Mueller. DESCRIPTION OF PROCEDURE: As follows. The patient was placed in the lithotomy position. Perioperative antibiotics were administered. Procedure was performed under fluoroscopic control as well as video endoscopic control. Anesthesia was provided by Anesthesiology. A 22-Welsh cystoscope sheath was introduced with obturator. Urine was sent for bacteriologic examination. The bladder was inspected with 30-degree and 70-degree lens. There were multiple bladder tumors. Some were papillary. Some were flat. There was abnormal mucosa with papillae that were flat. There were multiple erythematous flat areas of abnormal mucosa. There was tumor noted on the floor as well as the lateral wall as well as the trigone. Multiple sites were biopsied using cold cup biopsy forceps. Fulguration was performed with ball electrode electrocautery. Larger tumors were resected with the 26-Welsh resectoscope sheath. The tumors were sent individually for pathologic examination. Hemostasis was achieved with electrocautery. The tumor size in aggregate was greater than 5 cm in size. Prior to the biopsy, fulguration and resection, bilateral retrograde ureteral pyelogram was performed. Iodinated contrast dye was instilled into each ureteral orifice, via cone-tip catheter. The ureters and kidneys was viewed sequentially with fluoroscopy. There was no evidence of filling defect or obstruction. There was fullness of the right collecting system with suggestion of mild ureteropelvic junction obstruction. There was [id number] drainage noted on the post-drainage films, better drainage was noted on the left than the right. The biopsies were performed. The resection of the tumor were performed. The specimens were sent and labeled individually for pathologic examination. Additionally, the base of one of the bladder tumors was sent for pathologic examination as a separate resected specimen. The bladder was reinspected. There was no active bleeding. There were no residual tumors identified. The bladder was drained, cystoscope sheath removed. A Kenny catheter was inserted. Bladder irrigation was clear. Exam under anesthesia/bimanual examination and anorectal examination was performed. There was fullness of the bladder base. There was no fixation. There was no adnexal mass. The patient was returned to supine position. The patient tolerated the procedure without complication. Tammy MD Ervin cc: Vee Fortune MD
== END 2018-08-16 12:39 | disposition home or self-care (01) ==
LOC: C.SDS 06:05
PROVIDERS: ATTEND Urology
DX: C67.8 Malignant neoplasm of overlapping sites of bladder (principal)
CPT/HCPCS: 52204; 52234; 74019; 76000; 82948; 87086; 88104; 88305; J0696; J1170